=== PATIENT | female | born 1990 | race African-American/Black ===

== ENCOUNTER 2016-10-21 18:01 | Emergency (ER) | payer MEDICAID ==
[~2016-10-21] VITALS: Ht 167.6 cm; Wt 49.9 kg
[~2016-10-21 18:01] MED LIST: ACETAMINOPHEN-1 EAC1 ORAL; CLARITIN-D 241 EACH PO; CLEOCIN T60 ML TP; CLINDAMYCIN HC300 MG ORAL; CYCLOBENZAPRINE10 MG ORAL; FLONASE1 SPRAYS NASAL; GUAIFENESIN-CO118 M1 ORAL; IBUPROFEN600 MG ORAL; NKM; ROBITUSSIN COU118 M4 PO; SUDAFED60 MG ORAL; ZANTAC150 MG ORAL
[2016-10-21 18:21] VITALS: BP 116/69
--- NOTE | 2016-10-21 18:50 | Emergency Room Report ---
History of Present Illness General Chief Complaint: Upper Respiratory Illness Source: Patient Present Illness HPI 26 YO Female presents to the ED c/o dry cough, rib pains, and sore throat x 2 days. intermittent clear phlegm. denies fevers, chills, neck pain/stiffness. reports daughter has had cough for several days prior to onset of her symptoms. pt. states she has inhaler at home for when she is sick, does not use regularly. Pt. reports loss of voice x [address] as 6/10 in severity. pt. states cough is primary symptom. Denies CP, Palpitations, LOC, AMS , dizziness, Changes in Vision, Sensation, paresthesias, or a sudden severe headache. Allergies: Coded Allergies: No Known Allergies (Unverified , 04/06/15) Patient History Past Medical History: see triage record Past Surgical History: none Pertinent Family History: none Last Menstrual Period: 08/2016 Now: No Immunizations: UTD Reviewed Nursing Documentation: PMH: Agreed, PSxH: Agreed Nursing Documentation-PMH Past Medical History: No Stated History Review of Systems All Other Systems: negative except mentioned in HPI Physical Exam Vital Signs Date Time Temp Pulse Resp B/P Pulse Ox O2 Delivery O2 Flow Rate FiO2 10/21/16 18:21 98.1 16 116/69 99 Room Air 10/21/16 18:21 73 Sp02 EP Interpretation: reviewed, normal General Appearance: no apparent distress, alert, GCS 15, non-toxic Head: normocephalic, atraumatic Eyes: bilateral eye PERRL, bilateral eye normal inspection ENT: hearing grossly normal, normal pharynx, no angioedema, TMs + canals normal , uvula midline, moist mucus membranes, tonsillar swelling, pharyngeal erythema , other - voice is hoarse/raspy Neck: full range of motion, no meningismus, no bony tend, supple/symm/no masses Respiratory: chest non-tender, lungs clear, speaking full sentences, wheezing - scant bilateral wheezing on expirations bilaterally. Cardiovascular #1: regular rate, rhythm, no edema Musculoskeletal: back normal, gait/station normal, normal range of motion, non- tender Neurologic: alert, oriented x3, responsive, motor strength/tone normal, sensory intact, speech normal Psychiatric: judgement/insight normal, memory normal, mood/affect normal Skin: normal color, no rash, warm/dry, well hydrated Lymphatic: no adenopathy Medical Decision Making PA Attestation Dr. Yen is my supervising Physician whom patient management has been discussed with. Diagnostic Impression: Primary Impression: Bronchitis Additional Impression: Laryngitis ER Course Pt. presents to the ED c/o dry cough, rib pains, and sore throat x 2 days. intermittent clear phlegm. denies fevers, chills, neck pain/stiffness. reports daughter has had cough for several days prior to onset of her symptoms. pt. states she has inhaler at home for when she is sick, does not use regularly. Ddx considered but are not limited to URI, pneumonia, PE, strep pharyngitis, meningitis, bronchitis, laryngitis Vital signs: Pt.is afebrile VS are WNL H&PE are most consistent with bronchitis and laryngitis ORDERS: none required at this time, the diagnosis is clinical ED INTERVENTIONS: None required at this time. DISCHARGE: At this time pt. is stable for d/c to home. Will provide printed patient care instructions, and any necessary prescriptions. Care plan and follow up instructions have been discussed with the patient prior to discharge. Last Vital Signs Date Time Temp Pulse Resp B/P Pulse Ox O2 Delivery O2 Flow Rate FiO2 10/21/16 18:26 16 Room Air 10/21/16 18:21 98.1 73 116/69 99 Disposition: HOME, SELF-CARE Condition: Stable Scripts Ibuprofen* (MOTRIN*) 600 Mg Tablet 600 MG ORAL THREE TIMES A DAY, #30 TAB 0 Refills Prov: Kerri Flores P.A. 10/21/16 Prednisone* (PREDNISONE*) 20 Mg Tablet 40 MG ORAL DAILY for 5 Days, #10 TAB Prov: Kerri Flores P.A. 10/21/16 Codeine/Promethazine Hcl* (PROMETHAZINE-CODEINE SYRUP*) 118 Ml Syrup 5 ML ORAL Q6H Y for For Cough, #118 ML 0 Refills Prov: Kerri Flores.A. 10/21/16 Patient Instructions: Acute Bronchitis Additional Instructions: Take medications as directed. Follow up with PCP in 3-5 days Return sooner to ED if new symptoms occur, or current symptoms become worse. Do not drink alcohol, drive, or operate heavy machinery while taking cough syrup as this may cause drowsiness. - Please note that this Emergency Department Report was dictated using [employer] of product marketing technology software, occasionally this can lead to erroneous entry secondary to interpretation by the dictation equipment. Kerri Flores Oct 21, 2016 18:50
[2016-10-21] MEDS ORDERED: PREDNISONE20 MG ORAL (18:55)
[2016-10-21] MEDS ORDERED: PROMETHAZINE-C118 M1 ORAL (18:55)
[2016-10-21] MEDS ORDERED: IBUPROFEN600 MG ORAL (18:55)
[2016-10-21 19:12] VITALS: BP 116/69
== END 2016-10-21 19:12 | disposition home or self-care (01) ==
LOC: EMR 18:51
DX: J40 Bronchitis, not specified as acute or chronic (principal); J04.0 Acute laryngitis
CPT/HCPCS: 99284

== ENCOUNTER 2017-05-30 08:58 | Emergency (ER) | payer MEDICAID ==
[~2017-05-30] VITALS: Ht 170.2 cm; Wt 49.9 kg
[~2017-05-30 08:58] MED LIST changes: +PREDNISONE20 MG ORAL; +PROMETHAZINE-C118 M1 ORAL
[2017-05-30 09:15] VITALS: BP 117/84
[2017-05-30] MEDS ORDERED: IBUPROFEN600 MG ORAL (09:17)
[2017-05-30] MEDS ORDERED: AMOXICILLIN500 MG ORAL (09:17)
--- NOTE | 2017-05-30 09:21 | Emergency Room Report ---
History of Present Illness General Chief Complaint: General Complaint Source: Patient Present Illness HPI Patient presents with complaints of sore throat bodyache Neck pain Reports symptoms started 2 days ago denies any chest pain denies any cough Denies any obvious fevers Pain is worse with swallowing / Denies any photophobia Denies any recent travel Allergies: Coded Allergies: No Known Allergies (Unverified , 04/06/15) Patient History Past Medical History: see triage record Pertinent Family History: none Last Menstrual Period: 05/04/17 Reviewed Nursing Documentation: PMH: Agreed, PSxH: Agreed Nursing Documentation-PMH Past Medical History: No Stated History Review of Systems All Other Systems: negative except mentioned in HPI Physical Exam Vital Signs Date Time Temp Pulse Resp B/P (MAP) Pulse Ox O2 Delivery O2 Flow Rate FiO2 05/30/17 09:01 97.9 92 18 117/84 100 Room Air Sp02 EP Interpretation: reviewed, normal General Appearance: well appearing, no apparent distress Head: normocephalic, atraumatic Eyes: bilateral eye PERRL, bilateral eye EOMI ENT: uvula midline, pharyngeal erythema - bilaterally Neck: full range of motion, supple, no meningismus Respiratory: lungs clear, normal breath sounds Cardiovascular #1: regular rate, rhythm Musculoskeletal: normal inspection Neurologic: normal inspection, alert Skin: normal color Medical Decision Making Diagnostic Impression: Primary Impression: pharyngitis ER Course Patient looks well, does not appear septic or toxic There is no signs of meningitis, while questioning and during history patient is moving neck in flexion extension answering yes to questions without any discomfort With the findings of pharyngeal erythema and complains patient was diagnosed with pharyngitis and is trialed on conservative outpatient antibiotics Last Vital Signs Date Time Temp Pulse Resp B/P (MAP) Pulse Ox O2 Delivery O2 Flow Rate FiO2 05/30/17 09:15 97.9 72 18 117/84 100 Room Air Status: unchanged Disposition: HOME, SELF-CARE Condition: Stable Scripts Amoxicillin* (AMOXIL*) 500 Mg Capsule 500 MG ORAL THREE TIMES A DAY, #21 CAP Prov: HUGO CALLES.Beverly 05/30/17 Ibuprofen* (MOTRIN*) 600 Mg Tablet 600 MG ORAL Q8H Y for For Pain, #20 TAB 0 Refills Prov: HUGO CALLES D.O. 05/30/17 Referrals: NON PHYSICIAN (PCP) Patient Instructions: Pharyngitis, [id number] Additional Instructions: Patient is provided with the discharge instructions notified to follow up with primary doctor in the next 2-3 days otherwise return to the er with any worsening symptoms. Please note that this report is being documented using [employer] technology. This can lead to erroneous entry secondary to incorrect interpretation by the dictating instrument. HUGO CALLES D.O. May 30, 2017 09:21
[2017-05-30 10:09] VITALS: BP 117/84
== END 2017-05-30 09:50 | disposition home or self-care (01) ==
LOC: EMR 09:15
DX: J02.9 Acute pharyngitis, unspecified (principal)
CPT/HCPCS: 99284

== ENCOUNTER 2017-10-06 10:46 | Emergency (ER) | payer MEDICAID ==
[~2017-10-06] VITALS: Ht 167.6 cm; Wt 49.9 kg
[~2017-10-06 10:46] MED LIST changes: +AMOXICILLIN500 MG ORAL
[2017-10-06] MEDS ORDERED: Lidocaine 2% Visc 15ml soln ORAL ONE (11:30)
[2017-10-06 11:44] LABS: APPEARANCE,URINE SLIGHTLY CLOUDY; BILIRUBIN, URINE NEGATIVE (NEGATIVE); COLOR,URINE PALE YELLOW; GLUCOSE, URINE (UA) NEGATIVE (NEGATIVE); KETONES,URINE NEGATIVE (NEGATIVE); LEUKOCYTE ESTERASE ,URINE 3+ (NEGATIVE); NITRITE,URINE NEGATIVE (NEGATIVE); PH,URINE 6.5 (4.5-8.0); PROTEIN,URINE NEGATIVE (NEGATIVE); UROBILINOGEN,URINE NORMAL MG/DL (0.0-1.0)
[2017-10-06] MEDS ORDERED: ZOFRAN ODT4 MG ORAL (11:52)
[2017-10-06] MEDS ORDERED: KEFLEX500 MG ORAL (11:53)
[2017-10-06 12:04] VITALS: BP 123/81
--- NOTE | 2017-10-09 15:00 | Emergency Room Report ---
History of Present Illness General Chief Complaint: Abdominal Pain Source: Patient Present Illness Allergies: Coded Allergies: No Known Allergies (Unverified , 04/06/15) Patient History Reviewed Nursing Documentation: PMH: Agreed; PSxH: Agreed Nursing Documentation-PMH Past Medical History: No Stated History Physical Exam Vital Signs Date Time Temp Pulse Resp B/P (MAP) Pulse Ox O2 Delivery O2 Flow Rate FiO2 10/06/17 10:51 98.6 89 20 123/81 99 Room Air 98.6 Medical Decision Making Diagnostic Impression: Primary Impression: Abdominal pain Last Vital Signs Date Time Temp Pulse Resp B/P (MAP) Pulse Ox O2 Delivery O2 Flow Rate FiO2 10/06/17 12:04 98.6 20 123/81 99 Room Air 98.6 10/06/17 10:51 89 Disposition: HOME, SELF-CARE Condition: Stable Scripts Cephalexin* (KEFLEX*) 500 Mg Capsule 500 MG ORAL Q6H, #28 CAP 0 Refills Prov: Nilesh Encarnacion 10/06/17 Ondansetron Odt* (ZOFRAN ODT*) 4 Mg Tab.rapdis 4 MG ORAL Q8H PRN for Nausea & Vomiting, #30 TAB 0 Refills Prov: Nilesh Encarnacion 10/06/17 Referrals: NON PHYSICIAN (PCP) Patient Instructions: Abdominal Pain, Adult Nilesh Encarnacion Oct 09, 2017 15:00
== END 2017-10-06 12:05 | disposition home or self-care (01) ==
LOC: EMR 11:40
DX: R10.9 Unspecified abdominal pain (principal)
CPT/HCPCS: 81003; 81025; 87086; 99284

== ENCOUNTER 2017-10-12 23:41 | Emergency (ER) | payer MEDICAID ==
[~2017-10-12] VITALS: Ht 167.6 cm; Wt 49.9 kg
[~2017-10-12 23:41] MED LIST changes: +KEFLEX500 MG ORAL; +ZOFRAN ODT4 MG ORAL
[2017-10-12] MEDS ORDERED: KENALOG 0.025%15 GM APPLIC (23:57)
[2017-10-13 00:01] VITALS: BP 110/68
[2017-10-13 00:10] VITALS: BP 110/68
--- NOTE | 2017-10-13 00:40 | Emergency Room Report ---
History of Present Illness General Chief Complaint: Skin Rash/Abscess Source: Patient Present Illness HPI 27-year-old female presenting with rash to back of neck for one month. States that it is itchy. Has tried hydrocortisone without relief. No fever no chills. No purulent drainage Allergies: Coded Allergies: No Known Allergies (Unverified , 04/06/15) Patient History Past Medical History: see triage record Past Surgical History: none Pertinent Family History: none Last Menstrual Period: 10/10/17 Now: No Reviewed Nursing Documentation: PMH: Agreed; PSxH: Agreed Nursing Documentation-PMH Past Medical History: No Stated History Review of Systems All Other Systems: negative except mentioned in HPI Physical Exam Vital Signs Date Time Temp Pulse Resp B/P (MAP) Pulse Ox O2 Delivery O2 Flow Rate FiO2 10/12/17 23:49 97.9 84 16 107/67 99 Room Air 97.9 Sp02 EP Interpretation: reviewed, normal General Appearance: normal inspection, well appearing, no apparent distress, alert, GCS 15, non-toxic Head: normocephalic, atraumatic Eyes: bilateral eye normal inspection, bilateral eye PERRL, bilateral eye EOMI ENT: normal ENT inspection, normal pharynx, normal voice, moist mucus membranes Neck: normal inspection, full range of motion, supple Respiratory: normal inspection, lungs clear, no respiratory distress, no retraction, speaking full sentences, chest symmetrical Cardiovascular #1: normal inspection Cardiovascular #2: 2+ radial (R), 2+ radial (L) Gastrointestinal: normal inspection Musculoskeletal: normal inspection, back normal, normal range of motion, non- tender Neurologic: normal inspection, alert, oriented x3, responsive, motor strength/ tone normal, sensory intact, normal gait, speech normal Psychiatric: normal inspection, judgement/insight normal, memory normal Skin: other - Scaly/dark chronic discoloration of rash back of neck, about 3 x 3 cm, nontender no purulent drainage Medical Decision Making Diagnostic Impression: Primary Impression: Chronic pruritic rash in adult ER Course 27-year-old female with rash to back of neck for one month DDX: eczema vs. contact dermatitis vs. viral exanthem vs cellulitis versus psoriasis Likely to be chronic eczema Plan: None ER course: Patient has remained stable in ED. Disposition: Patient will be discharged to home. Told to follow-up with cork tipper and PCP in one week without fail Please note that this Emergency Department Report was dictated using [employer] dial stoner technology software, occasionally this can lead to erroneous entry secondary to interpretation by the dictation equipment Last Vital Signs Date Time Temp Pulse Resp B/P (MAP) Pulse Ox O2 Delivery O2 Flow Rate FiO2 10/13/17 00:10 97.8 82 17 110/68 98 Room Air 97.8 Disposition: HOME, SELF-CARE Condition: Stable Scripts Triamcinolone Acet (Triamcinolone Acetonide) 15 Gm Cream..g. 15 GM APPLIC DAILY for 7 Days, #1 TUBE 0 Refills Prov: Tressa Gerard M.D. 10/12/17 Referrals: NON PHYSICIAN (PCP) Patient Instructions: Rash Additional Instructions: please follow up with your pcp or a cork tipper in 1 week Tressa Gerard M.D. Oct 13, 2017 00:40
== END 2017-10-13 00:10 | disposition home or self-care (01) ==
LOC: EMR 23:59
DX: L29.9 Pruritus, unspecified (principal)
CPT/HCPCS: 99283

== ENCOUNTER 2018-01-30 23:11 | Emergency (ER) | payer MEDICAID ==
[~2018-01-30] VITALS: Ht 167.6 cm; Wt 45.4 kg
[~2018-01-30 23:11] MED LIST changes: +KENALOG 0.025%15 GM APPLIC
[2018-01-30 23:30] VITALS: BP 126/81
[2018-01-30] MEDS ORDERED: IBUPROFEN600 MG ORAL (23:57)
--- NOTE | 2018-01-30 23:57 | Emergency Room Report ---
History of Present Illness General Chief Complaint: Laceration Source: Patient Present Illness HPI Is a 26-year-old female who is right-hand dominant. She presents with a finger laceration. She was cutting chase and cut her tip of the index finger. Bleeding stopped. No other injury. Tetanus was recent. No other complaint. Throbbing in nature. Nothing made it better. Palpation made it worse. Allergies: Coded Allergies: No Known Allergies (Unverified , 04/06/15) Patient History Past Medical History: see triage record, old chart reviewed Past Surgical History: none Pertinent Family History: none Social History: Denies: smoking Last Menstrual Period: December 20 Now: No Immunizations: UTD Reviewed Nursing Documentation: PMH: Agreed; PSxH: Agreed Nursing Documentation-PMH Past Medical History: No Stated History Review of Systems Eye: Denies: eye pain, blurred vision ENT: Denies: ear pain, nose congestion, throat swelling Respiratory: Denies: cough, shortness of breath Cardiovascular: Denies: chest pain, palpitations Gastrointestinal: Denies: abdominal pain, diarrhea, nausea, vomiting Musculoskeletal: Denies: back pain, joint pain Skin: Denies: rash Neurological: Denies: headache, numbness Endocrine: Denies: increased thirst, increased urine Hematologic/Lymphatic: Denies: easy bruising All Other Systems: negative except mentioned in HPI Physical Exam Vital Signs Date Time Temp Pulse Resp B/P (MAP) Pulse Ox O2 Delivery O2 Flow Rate FiO2 01/30/18 23:22 98.1 115 18 143/95 100 Room Air 98.1 vitals normal Sp02 EP Interpretation: reviewed, normal General Appearance: well appearing, no apparent distress, alert Head: normocephalic, atraumatic Eyes: bilateral eye PERRL, bilateral eye EOMI ENT: hearing grossly normal, normal pharynx Neck: full range of motion, supple, no meningismus Respiratory: chest non-tender, lungs clear, normal breath sounds Cardiovascular #1: regular rate, rhythm, no murmur Gastrointestinal: normal bowel sounds, non tender, no mass, no organomegaly, no bruit, non-distended Musculoskeletal: back normal, gait/station normal, normal range of motion, other - Skin avulsion at the tip of the index finger. Does not involve the nail. Psychiatric: mood/affect normal Skin: warm/dry Medical Decision Making Diagnostic Impression: Primary Impression: Fingertip avulsion Qualified Codes: S61.209A - Unspecified open wound of unspecified finger without damage to nail, initial encounter ER Course Patient with fingertip avulsion. Superficial nature. No foreign body. No tendon laceration. We'll discharge home. I put a bulky dressing to control the bleeding. Last Vital Signs Date Time Temp Pulse Resp B/P (MAP) Pulse Ox O2 Delivery O2 Flow Rate FiO2 01/30/18 23:22 98.1 115 18 143/95 100 Room Air 98.1 Status: improved Disposition: HOME, SELF-CARE Condition: Stable Scripts Ibuprofen* (MOTRIN*) 600 Mg Tablet 600 MG ORAL THREE TIMES A DAY, #30 TAB 0 Refills Prov: SHANTI RENEE M.D. 01/30/18 Additional Instructions: follow-up with your DrLilia in 2-3 days. return if worse SHANTI RENEE M.D. Jan 30, 2018 23:57
[2018-01-31 00:05] VITALS: BP 126/81
== END 2018-01-31 03:00 | disposition home or self-care (01) ==
LOC: EMR 01-31 02:57
DX: S61.211A Laceration without foreign body of left index finger without damage to nail, initial encounter (principal); W26.0XXA Contact with knife, initial encounter; Y92.9 Unspecified place or not applicable
CPT/HCPCS: 99283

== ENCOUNTER → 2018-08-04 | Emergency (ER) | payer MEDICAID ==
[~2018-08-04] VITALS: Ht 167.6 cm; Wt 52.2 kg
[~2018-08-04] MED LIST changes: +AUGMENTIN 875-1 EAC1 ORAL
[2018-08-04 20:55] VITALS: BP 126/86
--- NOTE | 2018-08-04 20:55 | NUR ---
ED Nurse Note: Patient walk in c/o sore throat and painful swallowing since this morning. pt stating 10/10 pain at the moment. pt is asking meds for cough. will continue to monitor.
--- NOTE | 2018-08-04 21:20 | Emergency Room Report ---
History of Present Illness General Chief Complaint: Sore Throat Source: Patient Present Illness HPI This is a 28-year-old female with no past medical history. She presents with chief complaint of sore throat. Onset today. No nausea no vomiting. Slight congestion. Losing her voice. Worse with swallowing. Pain is 8 out of 10. Denies any other complaint. Said she has slight coughing is mucousy in nature. Allergies: Coded Allergies: No Known Allergies (Unverified , 04/06/15) Patient History Past Medical History: see triage record, old chart reviewed Past Surgical History: none Pertinent Family History: none Social History: Denies: smoking Last Menstrual Period: 07/20/2018 Now: No Immunizations: other Reviewed Nursing Documentation: PMH: Agreed; PSxH: Agreed Nursing Documentation-PMH Past Medical History: No Stated History Review of Systems Eye: Denies: eye pain, blurred vision ENT: Reports: throat pain; Denies: ear pain, nose congestion, throat swelling Respiratory: Reports: cough; Denies: shortness of breath Cardiovascular: Denies: chest pain, palpitations Gastrointestinal: Denies: abdominal pain, diarrhea, nausea, vomiting Musculoskeletal: Denies: back pain, joint pain Skin: Denies: rash Neurological: Denies: headache, numbness Endocrine: Denies: increased thirst, increased urine Hematologic/Lymphatic: Denies: easy bruising All Other Systems: negative except mentioned in HPI Physical Exam Vital Signs Date Time Temp Pulse Resp B/P (MAP) Pulse Ox O2 Delivery O2 Flow Rate FiO2 08/04/18 20:52 98.1 88 16 126/86 99 Room Air vitals normal Sp02 EP Interpretation: reviewed, normal General Appearance: well appearing, no apparent distress, alert Head: normocephalic, atraumatic Eyes: bilateral eye PERRL, bilateral eye EOMI ENT: hearing grossly normal, normal pharynx, uvula midline - Enlarged, tonsillar swelling Neck: full range of motion, supple, no meningismus Respiratory: chest non-tender, lungs clear, normal breath sounds Cardiovascular #1: regular rate, rhythm, no murmur Gastrointestinal: normal bowel sounds, non tender, no mass, no organomegaly, no bruit, non-distended Musculoskeletal: back normal, gait/station normal, normal range of motion Psychiatric: mood/affect normal Skin: warm/dry Medical Decision Making Diagnostic Impression: Primary Impression: Viral pharyngitis ER Course Patient with a viral infection. No evidence of strep throat, peritonsillar abscess, retrosternal abscess or Warren angina. We'll discharge home. Last Vital Signs Date Time Temp Pulse Resp B/P (MAP) Pulse Ox O2 Delivery O2 Flow Rate FiO2 08/04/18 20:55 98.1 68 16 126/86 99 Room Air Status: unchanged Disposition: HOME, SELF-CARE Condition: Stable Scripts Ibuprofen* (MOTRIN*) 600 Mg Tablet 600 MG ORAL THREE TIMES A DAY, #30 TAB 0 Refills Prov: Haris Ramires MD 08/04/18 Additional Instructions: Increase fluids. Salt water gargle. Ibuprofen as needed for pain. Follow-up with your doctor in 7 days. Return if worse. Haris Ramires MD Aug 04, 2018 21:20
[2018-08-04 21:26] VITALS: BP 126/86
--- NOTE | 2018-08-04 21:26 | NUR ---
ED Nurse Note: pt cleared to d/c per ER provider, pt d/c instruction and prescription provided per ER Provider, pt education done via discussion and hand out, pt advised to follow up with pcp to continue care, pt verbalized understanding and agrees with plan, wristband removed. pt vss, ambulatory w/ steady gait. all belongings left w/ pt.
== END | disposition home or self-care (01) ==
LOC: EMR 21:28
DX: J02.8 Acute pharyngitis due to other specified organisms (principal); B97.89 Other viral agents as the cause of diseases classified elsewhere
CPT/HCPCS: 99282

== ENCOUNTER 2018-08-06 08:20 | Emergency (ER) | payer MEDICAID ==
[~2018-08-06] VITALS: Ht 167.6 cm; Wt 52.2 kg
[~2018-08-06 08:20] MED LIST changes: -AUGMENTIN 875-1 EAC1 ORAL
[2018-08-06 08:36] VITALS: BP 114/77
--- NOTE | 2018-08-06 08:38 | NUR ---
ED Nurse Note: pt walked in to ED due to flu like sx. pt c/o coughing with phlegm, chills, bodyache, both earache, neck pain and fever at home for last 4 days. pt seen by C MATTY on for same sx but not feeling better. intermittent cough noted. mask provide. respirations even and non-labored noted. breath sounds clear. skin warm to touch. no fever at the triage. AAO x4. will wait for the further order.
[2018-08-06] MEDS ORDERED: AUGMENTIN 875-1 EAC1 ORAL (09:04)
[2018-08-06 09:26] VITALS: BP 114/77
--- NOTE | 2018-08-06 09:26 | NUR ---
ED Nurse Note: Pt is clear to be discharged by ERMD. Discharge paper and prescription given, pt verbalized understanding of discharge instruction. AOx4, VSS. Wristband removed. Pt ambulated out with steady gait with all belongings.
[2018-08-06] MEDS ORDERED: Augmentin 875mg Tab ORAL ONE (09:30)
--- NOTE | 2018-08-06 14:44 | Emergency Room Report ---
History of Present Illness General Chief Complaint: Flu Like Symptoms Source: Patient Present Illness HPI Patient presents with continuing sore throat general weakness body ache Patient reports that she was here 2 days ago however did not receive any antibiotics Denies any chest pain denies any vomiting or diarrhea denies any posterior neck pain or photophobia Patient's pain is worse with swallowing 6 out of 10 Has not improved with pain medication Low-grade fevers at home denies any rash Allergies: Coded Allergies: No Known Allergies (Unverified , 04/06/15) Patient History Past Medical History: see triage record Pertinent Family History: none Last Menstrual Period: 07/20/18 Now: No Reviewed Nursing Documentation: PMH: Agreed; PSxH: Agreed Nursing Documentation-PMH Past Medical History: No Stated History Review of Systems All Other Systems: negative except mentioned in HPI Physical Exam Vital Signs Date Time Temp Pulse Resp B/P (MAP) Pulse Ox O2 Delivery O2 Flow Rate FiO2 08/06/18 08:23 98.2 89 20 114/77 98 Room Air Sp02 EP Interpretation: reviewed, normal General Appearance: no apparent distress Head: normocephalic, atraumatic Eyes: bilateral eye PERRL, bilateral eye EOMI ENT: hearing grossly normal, normal voice, TMs + canals normal, uvula midline, pharyngeal erythema Neck: full range of motion, supple, no meningismus, no bony tend Respiratory: lungs clear, normal breath sounds, no rhonchi, no respiratory distress, no retraction, no accessory muscle use Cardiovascular #1: normal peripheral pulses, regular rate, rhythm, no edema, no gallop, no JVD, no murmur Gastrointestinal: normal bowel sounds, non tender, soft, no mass, no organomegaly, non-distended, no guarding, no hernia, no pulsatile mass, no rebound Genitourinary: no CVA tenderness Musculoskeletal: normal inspection Neurologic: oriented x3, responsive, 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 metals 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 III-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 nml as tested, motor strength/ tone normal, sensory intact Psychiatric: mood/affect normal Skin: normal color, no rash, warm/dry, palpation normal Lymphatic: normal inspection, no adenopathy Medical Decision Making Diagnostic Impression: Primary Impression: pharyngitis ER Course Multiple differentials considered including but not limited to, peritonsillar abscess, retropharyngeal abscess, meningitis Patient appears to have findings consistent with pharyngitis Hemodynamically stable And appropriate for initial conservative outpatient trial Last Vital Signs Date Time Temp Pulse Resp B/P (MAP) Pulse Ox O2 Delivery O2 Flow Rate FiO2 08/06/18 09:26 98.2 89 20 114/77 98 Room Air Status: improved Disposition: HOME, SELF-CARE Condition: Stable Scripts Amoxicillin/Potassium Clav 875-125* (AUGMENTIN 875-125 TABLET*) 1 Each Tablet 1 TAB ORAL TWICE A DAY, #20 TAB Prov: Ron Yen DO 08/06/18 Departure Forms: Return to School Return to School On: Aug 10, 2018 School Release Restrictions: None Patient Instructions: Pharyngitis, [id number] Additional Instructions: Patient is provided with the discharge instructions notified to follow up with primary doctor in the next 2-3 days otherwise return to the er with any worsening symptoms. Please note that this report is being documented using [employer] technology. This can lead to erroneous entry secondary to incorrect interpretation by the dictating instrument. Ron Yen DO Aug 06, 2018 14:44
== END 2018-08-06 09:26 | disposition home or self-care (01) ==
LOC: EMR 08:39
DX: J02.9 Acute pharyngitis, unspecified (principal)
CPT/HCPCS: 99282

== ENCOUNTER 2018-12-03 13:32 | Emergency (ER) | payer MEDICAID ==
[~2018-12-03] VITALS: Ht 167.6 cm; Wt 52.2 kg
[~2018-12-03 13:32] MED LIST changes: +AUGMENTIN 875-1 EAC1 ORAL
[2018-12-03 13:49] VITALS: BP 116/78
--- NOTE | 2018-12-03 14:03 | Emergency Room Report ---
History of Present Illness General Chief Complaint: Female Urogenital Problems Source: Patient Present Illness HPI 28-year-old female comes here with complaints of having suprapubic discomfort at the end of her urinary stream for the last 2 days. Vaginal bleeding vaginal discharge fever back pain, nausea, vomiting, and has tried cranberry pills without much relief of her symptoms. Does report she thinks she is having some blood-tinged urine, denies flank pain, any other complaints at all. She does not know if she is . Allergies: Coded Allergies: No Known Allergies (Unverified , 04/06/15) Patient History Past Medical History: see triage record Reviewed Nursing Documentation: PMH: Agreed; PSxH: Agreed Nursing Documentation-PMH Past Medical History: No Stated History Review of Systems All Other Systems: negative except mentioned in HPI Physical Exam Vital Signs Date Time Temp Pulse Resp B/P (MAP) Pulse Ox O2 Delivery O2 Flow Rate FiO2 12/03/18 13:49 98.1 84 20 116/78 98 Room Air Sp02 EP Interpretation: reviewed, normal General Appearance: no apparent distress, alert, non-toxic Head: normocephalic Eyes: bilateral eye normal inspection, bilateral eye PERRL, bilateral eye EOMI ENT: normal ENT inspection, hearing grossly normal, normal pharynx, no angioedema, normal voice, moist mucus membranes Neck: normal inspection, full range of motion, supple, supple/symm/no masses Respiratory: chest non-tender, lungs clear, normal breath sounds, chest symmetrical, palpation of chest normal Cardiovascular #1: normal peripheral pulses, regular rate, rhythm Cardiovascular #2: 2+ radial (R), 2+ radial (L) Gastrointestinal: normal inspection, non tender, soft, no mass, no guarding, no rebound Rectal: deferred Genitourinary: normal inspection, no CVA tenderness Musculoskeletal: back normal, gait/station normal, normal range of motion, non- tender, no calf tenderness Neurologic: alert, responsive, clinical care leader III-XII nml as tested, motor strength/tone normal, sensory intact, speech normal Psychiatric: judgement/insight normal, memory normal, mood/affect normal Skin: normal color, no rash, warm/dry, normal turgor Lymphatic: no adenopathy Medical Decision Making Diagnostic Impression: Primary Impression: UTI (urinary tract infection) ER Course Patient with negative urine HCG, but 3+ LE ua, will dc with macrobid, pyridium, motrin. F/u with PMD in 3-4 days. Abdominal exam benign, soft, nontender. Last Vital Signs Date Time Temp Pulse Resp B/P (MAP) Pulse Ox O2 Delivery O2 Flow Rate FiO2 12/03/18 13:49 98.1 84 20 116/78 (91) 98 Room Air Disposition: HOME, SELF-CARE Condition: Stable MILES PETERSON M.D Dec 03, 2018 14:03
[2018-12-03 14:12] LABS: APPEARANCE,URINE CLEAR; BILIRUBIN, URINE NEGATIVE (NEGATIVE); COLOR,URINE PALE YELLOW; GLUCOSE, URINE (UA) NEGATIVE (NEGATIVE); KETONES,URINE NEGATIVE (NEGATIVE); LEUKOCYTE ESTERASE ,URINE 3+ (NEGATIVE); NITRITE,URINE NEGATIVE (NEGATIVE); PH,URINE 7 (4.5-8.0); PROTEIN,URINE NEGATIVE (NEGATIVE); UROBILINOGEN,URINE NORMAL MG/DL (0.0-1.0)
[2018-12-03] MEDS ORDERED: NITROFURANTOIN100 M2 ORAL (14:31)
[2018-12-03] MEDS ORDERED: PHENAZOPYRIDIN100 MG ORAL (14:31)
[2018-12-03 14:47] VITALS: BP 120/68
== END 2018-12-03 14:47 | disposition home or self-care (01) ==
LOC: EMR 14:15
DX: N39.0 Urinary tract infection, site not specified (principal)
CPT/HCPCS: 81003; 81025; 99283

== ENCOUNTER 2019-06-12 10:29 | Emergency (ER) | payer MEDICAID, OTHER ==
[~2019-06-12] VITALS: Ht 167.6 cm; Wt 59.0 kg
[~2019-06-12 10:29] MED LIST changes: +NITROFURANTOIN100 M2 ORAL; +PHENAZOPYRIDIN100 MG ORAL
[2019-06-12] MEDS ORDERED: PRENATAL VITAM1 EACH PO (10:43)
[2019-06-12 10:49] VITALS: BP 103/64
--- NOTE | 2019-06-12 10:49 | NUR ---
ED Nurse Note: Pt walked into ER c/o intermittent nosebleeds for the past three weeks. Pt states she is able to control bleeding on her own. Per pt, last nosebleed was last night. She also reports cough for the past three weeks. Per pt, no LOC or dizziness. Pt is 7 months and is seeing physician for care. Pt aaox4, no respiratory or cardiac distress noted.
[2019-06-12] MEDS ORDERED: Bacitracin Oint UD TOPIC ONE (11:00)
[2019-06-12] MEDS ORDERED: BACITRACIN15 GM TOPIC (11:05)
[2019-06-12 11:10] VITALS: BP 104/76
--- NOTE | 2019-06-12 11:10 | NUR ---
ER DISCHARGE NOTE: Patient is cleared to be discharged per ERMD, pt is aox4, on room air, with stable vital signs. pt was given dc and prescription instructions, pt was able to verbalize understanding, pt id band removed. pt is able to ambulate with steady gait. pt took all belongings.
--- NOTE | 2019-06-12 13:27 | Emergency Room Report ---
History of Present Illness General Chief Complaint: Nosebleed Source: Patient Present Illness HPI 29-year-old female presents ED for evaluation. Complaining of cough and nosebleed x1 week. Comes and goes. Cough is dry. Denies fevers or chills. Does not take blood thinners. States she is about 7 months . Denies any vaginal bleeding or discharge. Denies any abdominal pain. No other aggravating relieving factors. Denies any other associated symptoms Allergies: Coded Allergies: No Known Allergies (Unverified , 04/06/15) Patient History Past Medical History: none Past Surgical History: none Pertinent Family History: none Social History: Denies: smoking, alcohol use, drug use Now: Yes - 7 MONTHS Immunizations: UTD Reviewed Nursing Documentation: PMH: Agreed; PSxH: Agreed Nursing Documentation-PMH Past Medical History: No History, Except For Review of Systems All Other Systems: negative except mentioned in HPI Physical Exam Vital Signs Date Time Temp Pulse Resp B/P (MAP) Pulse Ox O2 Delivery O2 Flow Rate FiO2 06/12/19 10:39 97.9 86 20 103/64 (77) 98 Room Air Sp02 EP Interpretation: reviewed, normal General Appearance: no apparent distress, alert, GCS 15, non-toxic Head: normocephalic, atraumatic Eyes: bilateral eye normal inspection, bilateral eye PERRL ENT: hearing grossly normal, normal pharynx, no angioedema, normal voice Neck: full range of motion, supple/symm/no masses Respiratory: chest non-tender, lungs clear, normal breath sounds, speaking full sentences Cardiovascular #1: regular rate, rhythm, no edema Cardiovascular #2: 2+ carotid (R), 2+ carotid (L), 2+ radial (R), 2+ radial (L) , 2+ dorsalis pedis (R), 2+ dorsalis pedis (L) Gastrointestinal: normal bowel sounds, non tender, soft, non-distended, no guarding, no rebound, other - gravid uterus Rectal: deferred Genitourinary: normal inspection, no CVA tenderness Musculoskeletal: back normal, normal range of motion, gait/station normal, non- tender Neurologic: alert, motor strength/tone normal, oriented x3, sensory intact, responsive, speech normal Psychiatric: judgement/insight normal, memory normal, mood/affect normal, no suicidal/homicidal ideation Reflexes: 3+ bicep (R), 3+ bicep (L), 3+ tricep (R), 3+ tricep (L), 3+ knee (R) , 3+ knee (L) Skin: no rash Lymphatic: no adenopathy Medical Decision Making Diagnostic Impression: Primary Impression: Epistaxis Additional Impression: URI (upper respiratory infection) Qualified Codes: J06.9 - Acute upper respiratory infection, unspecified ER Course Hospital Course 29 yo F presents with nose bleed and cough x 1 week Differential diagnoses include: URI, pharyngitis, otitis media, asthma Clinical course Patient placed on stretcher. After initial history, physical exam reveals a young female in no acute distress. Bilateral TM unremarkable. No pharyngeal erythema. No tonsillar exudates. No lymphadenopathy. lungs clear. abdomen soft. Bilateral nares no signs of blood or active bleeding. Gravid uterus. discussed findings with patient. We will treat episodic nosebleed with bacitracin in the mucous membranes. Options for treatment of the cough are limited as patient is . Safe for discharge for close outpatient follow- up. States she has a PMD Diagnosis - nose bleed, URI Stable and discharged home with Rx Bacitracin. Instructed to followup with PMD. Return to ED if symptoms recur or worsen Last Vital Signs Date Time Temp Pulse Resp B/P (MAP) Pulse Ox O2 Delivery O2 Flow Rate FiO2 06/12/19 10:49 97.9 86 20 103/64 98 Room Air Status: improved Disposition: HOME, SELF-CARE Condition: Stable Scripts Bacitracin (Bacitracin) 28.4 Gm Oint...g. 1 APPLIC TOPIC THREE TIMES A DAY, #28.4 GM Prov: Camden Velazquez MD 06/12/19 Patient Instructions: Nosebleed, [id number] Camden Velazquez MD Jun 12, 2019 13:27
== END 2019-06-12 11:10 | disposition home or self-care (01) ==
LOC: EMR 11:00
DX: R04.0 Epistaxis (principal); J06.9 Acute upper respiratory infection, unspecified
CPT/HCPCS: 99282

== ENCOUNTER 2019-12-20 14:22 | Emergency (ER) | payer OTHER ==
[~2019-12-20] VITALS: Ht 167.6 cm; Wt 49.9 kg
[~2019-12-20 14:22] MED LIST changes: +BACITRACIN15 GM TOPIC; +CEPHALEXIN500 MG ORAL; +ONDANSETRON ODT4 MG BC; +PRENATAL VITAM1 EACH PO; +TYLENOL EXTRA500 MG ORAL
--- NOTE | 2019-12-20 14:40 | NUR ---
ED Nurse Note:pt. came with c/o lower back pain and urinary urgency for 1 week
--- NOTE | 2019-12-20 14:57 | NUR ---
ED Nurse Note:urine sent to labs
[2019-12-20 15:16] LABS: APPEARANCE,URINE SLIGHTLY CLOUDY; BILIRUBIN, URINE NEGATIVE (NEGATIVE); GLUCOSE, URINE (UA) NEGATIVE (NEGATIVE); KETONES,URINE 2+ (NEGATIVE); LEUKOCYTE ESTERASE ,URINE 3+ (NEGATIVE); NITRITE,URINE NEGATIVE (NEGATIVE); PH,URINE 6 (4.5-8.0); PROTEIN,URINE 2+ (NEGATIVE); UROBILINOGEN,URINE 1 MG/DL (0.0-1.0)
[2019-12-20 15:18] LABS: COLOR,URINE YELLOW
--- NOTE | 2019-12-20 15:31 | Emergency Room Report ---
History of Present Illness General Chief Complaint: Female Urogenital Problems Source: Patient Present Illness HPI 29-year-old female with no significant past medical history here complaining of 1 week of urinary frequency and urgency and few days of 10 out of 10 left-sided flank pain. Denies any pain radiation. Denies nausea vomiting at this time however reports that at home she felt chills and feverish as well as nauseated. Denies any diffuse abdominal pain, diarrhea constipation. Denies chest pain, shortness of breath, cough or congestion. Denies any vaginal discharge. Patient reports that she gave 3 months ago and had a UTI right after and had a catheter placed in. Patient stable with stable vital signs at this time. Denies tobacco smoke. Reports that she is breast-feeding Allergies: Coded Allergies: No Known Allergies (Unverified , 04/06/15) COVID-19 Screening Contact w/high risk pt: No Recent Travel to affected area: No Experienced COVID-19 symptoms?: No COVID-19 Testing performed [employer]: No Patient History Past Medical History: see triage record Past Surgical History: none Pertinent Family History: none Last Menstrual Period: 11/30/19 Now: No Immunizations: UTD Reviewed Nursing Documentation: PMH: Agreed; PSxH: Agreed Nursing Documentation-PMH Past Medical History: No Stated History Review of Systems All Other Systems: negative except mentioned in HPI Physical Exam Vital Signs Date Time Temp Pulse Resp B/P (MAP) Pulse Ox O2 Delivery O2 Flow Rate FiO2 12/20/19 14:27 99.5 120 18 122/77 (92) 99 Room Air Sp02 EP Interpretation: reviewed, normal General Appearance: no apparent distress, alert, GCS 15, non-toxic Head: normocephalic, atraumatic Eyes: bilateral eye normal inspection, bilateral eye PERRL ENT: hearing grossly normal, normal pharynx, no angioedema, normal voice Neck: full range of motion, supple, supple/symm/no masses Respiratory: chest non-tender, lungs clear, normal breath sounds, no rhonchi, no wheezing, speaking full sentences Cardiovascular #1: regular rate, rhythm, no edema, no murmur, normal capillary refill Gastrointestinal: non tender, soft, no mass, no organomegaly, no peritonitis, no bruit, no guarding, no hernia Rectal: deferred Genitourinary: CVA tenderness (L) Musculoskeletal: back normal Neurologic: alert, motor strength/tone normal, oriented x3, sensory intact, responsive, speech normal Psychiatric: judgement/insight normal, memory normal, mood/affect normal, no suicidal/homicidal ideation Skin: no rash Lymphatic: no adenopathy Medical Decision Making PA Attestation All diagnoses and treatment plans were reviewed and discussed with my supervising physician Dr. Hunter Diagnostic Impression: Primary Impression: Pyelonephritis ER Course 29-year-old female with no significant past medical history here complaining of 1 week of urinary frequency and urgency and few days of 10 out of 10 left-sided flank pain. Denies any pain radiation. Denies nausea vomiting at this time however reports that at home she felt chills and feverish as well as nauseated. Denies any diffuse abdominal pain, diarrhea constipation. Denies chest pain, shortness of breath, cough or congestion. Denies any vaginal discharge. Patient reports that she gave 3 months ago and had a UTI right after and had a catheter placed in. Patient stable with stable vital signs at this time. Denies tobacco smoke. Reports that she is breast-feeding Ddx considered but are not limited to: UTI, pyelonephritis, urinary incontinence , prolapsed bladder Vital signs: are WNL, pt. is febrile H&PE are most consistent with: Pyelonephritis ORDERS: UA, urine cx, CBC, CMP, PT and PTT, Keflex, Reglan, Motrin, lidocaine patch, ED INTERVENTIONS: NS bolus, Zofran, Pepcid, Rocephin, Toradol DISCHARGE: At this time pt. is stable for d/c to home. Will provide printed patient care instructions, and any necessary prescriptions. Care plan and follow up instructions have been discussed with the patient prior to discharge. Patient take medication as directed, follow-up primary doctor, at this time patient does not meet criteria hospital as patient can be managed as an outpatient. White blood count within normal limits. Patient fever subsided. Patient did not warrant any stronger pain medication as well as to continue to breast-feed. Patient will follow primary care provider. Advised to return to emergency room if worsening symptoms. Also advised to increase oral hydration. CT/MRI/US Diagnostic Results CT/MRI/US Diagnostic Results : Imaging Test Ordered: CT abdomen pelvis with contrast Impression FINDINGS: The lung bases are clear. Left more than right patchy appearing renal nephrograms may represent pyelonephritis, clinically correlate. No hydronephrosis. The other abdominal solid organs, gallbladder and abdominal aorta appear within limits. No bowel dilation or free air. The appendix is not identified. Bladder and uterus appear within limits. Ovaries not well distinguished from adjacent bowel. No free fluid. IMPRESSION: Left more than right patchy appearing renal nephrograms may represent pyelonephritis, clinically correlate. Last Vital Signs Date Time Temp Pulse Resp B/P (MAP) Pulse Ox O2 Delivery O2 Flow Rate FiO2 12/20/19 14:27 99.5 120 18 122/77 (92) 99 Room Air Disposition: HOME, SELF-CARE Condition: Stable Scripts Lidocaine Patch* (Lidoderm Patch*) 1 Each Adh..patch 1 PATCH TOPIC DAILY, #30 PATCH Patch(es) may remain in place for up to 12 hours in any 24-hour period. Prov: Familia Ayala 12/20/19 Metoclopramide Hcl* (REGLAN*) 10 Mg Tablet 10 MG ORAL THREE TIMES A DAY, #30 TAB Prov: Familia Ayala 12/20/19 Ibuprofen* (MOTRIN*) 600 Mg Tablet 600 MG ORAL THREE TIMES A DAY, #30 TAB Prov: Familia Ayala 12/20/19 Cephalexin* (KEFLEX*) 500 Mg Capsule 500 MG ORAL EVERY 6 HOURS for 7 Days, #28 CAP Prov: Familia Ayala 12/20/19 Patient Instructions: Urinary Tract Infection, [id number] Additional Instructions: Take medication as directed, follow-up with your primary doctor, avoid strenuous physical activity, if worsening symptoms return to the emergency room Familia Ayala Dec 20, 2019 15:31
[2019-12-20] MEDS ORDERED: Omnipaque-300 100ml vial INJ PRN (15:45)
--- NOTE | 2019-12-20 16:30 | NUR ---
ED Nurse Note: pa aware of pt temp increase
[2019-12-20] MEDS ORDERED: cefTRIAXone 1 GM in NS 55 ML IVPB ONE (16:45)
[2019-12-20 17:19] LABS: INR 1.1 (0.9-1.1)
[2019-12-20 17:25] LABS: BASOPHILS % (AUTO) 1.8 % (0.0-2.0); EOSINOPHILS % (AUTO) 0.3 % (0.0-3.0); HEMATOCRIT 38.4 % (37.0-47.0); HEMOGLOBIN 12.4 G/DL (12.0-16.0); LYMPHOCYTES % (AUTO) 22.5 % (20.0-45.0); MEAN CORPUSCULAR VOLUME 88 FL (80-99); MONOCYTES % (AUTO) 7.7 % (1.0-10.0); NEUTROPHILS % (AUTO) 67.7 % (45.0-75.0); PLATELET COUNT 265 K/UL (150-450); RED BLOOD COUNT 4.38 M/UL (4.20-5.40); WHITE BLOOD COUNT 11.4 K/UL (4.8-10.8)
[2019-12-20 17:35] LABS: ALANINE AMINOTRANSFERASE 15 U/L (12-78); ALBUMIN 3.6 G/DL (3.4-5.0); ALBUMIN/GLOBULIN RATIO 0.9 (1.0-2.7); ALKALINE PHOSPHATASE 93 U/L (46-116); ANION GAP -4 mmol/L (5-15); ASPARTATE AMINO TRANSFERASE 18 U/L (15-37); BILIRUBIN,TOTAL 0.4 MG/DL (0.2-1.0); BLOOD UREA NITROGEN 11 mg/dL (7-18); CALCIUM 8.8 MG/DL (8.5-10.1); CARBON DIOXIDE 26 MMOL/L (21-32); CHLORIDE 102 MMOL/L (98-107); CREATININE 0.8 MG/DL (0.55-1.30); POTASSIUM 2.9 MMOL/L (3.5-5.1); SODIUM 127 MMOL/L (136-145)
--- NOTE | 2019-12-20 18:19 | Diagnostic Imaging Report ---
History: PAIN Exam: CT ABDOMEN + PELVIS With Contrast Technique more: CTDI is 2.80 mGy and DLP is 140.50 mGy-cm. Technique more: One or more of the following dose reduction techniques were used: automated exposure control, adjustment of the mA and/or kV according to patient size, use of iterative reconstruction technique. Comparison: None available FINDINGS: The lung bases are clear. Left more than right patchy appearing renal nephrograms may represent pyelonephritis, clinically correlate. No hydronephrosis. The other abdominal solid organs, gallbladder and abdominal aorta appear within limits. No bowel dilation or free air. The appendix is not identified. Bladder and uterus appear within limits. Ovaries not well distinguished from adjacent bowel. No free fluid. IMPRESSION: Left more than right patchy appearing renal nephrograms may represent pyelonephritis, clinically correlate.
[2019-12-20] MEDS ORDERED: ZOFRAN4 M1 ORAL (18:31)
[2019-12-20] MEDS ORDERED: CEPHALEXIN500 MG ORAL (18:31)
[2019-12-20] MEDS ORDERED: IBUPROFEN600 M1 ORAL (18:31)
[2019-12-20] MEDS ORDERED: REGLAN10 M1 ORAL (18:38)
[2019-12-20] MEDS ORDERED: LIDODERM700 M1 TOPIC (18:38)
--- NOTE | 2019-12-20 19:02 | NUR ---
ED Nurse Note: Pt cleared by health care Provider for discharge. DC instructions/prescription was given and explained to pt and verbalized understanding of teachings. All medical devices such as ID band removed. Pt is AAO x4, ambulatory and left with all personal belongings.
[2019-12-20 19:03] VITALS: BP 122/77
== END 2019-12-20 19:05 | disposition home or self-care (01) ==
LOC: EMR 18:25
DX: N12 Tubulo-interstitial nephritis, not specified as acute or chronic (principal)
CPT/HCPCS: 36415; 74177; 80053; 81003; 81025; 85025; 85610; 85730; 87086; 87181; 96365; J0696; Q9967; Z7502; 99284; J8499